=== PATIENT | male | born 1960 ===

== ENCOUNTER 2017-10-02 02:39 | Emergency (ER) | payer OTHER | END 2017-10-02 05:55 | disposition home or self-care (01) | LOC: E/R 02:39 | DX: T82.838A Hemorrhage due to vascular prosthetic devices, implants and grafts, initial encounter (principal); N18.9 Chronic kidney disease, unspecified; Y82.8 Other medical devices associated with adverse incidents; Z99.2 Dependence on renal dialysis; Z79.4 Long term (current) use of insulin; Z79.82 Long term (current) use of aspirin | CPT/HCPCS: 99284 ==